=== PATIENT | male | born 1930 | race Hispanic/Latino ===

== ENCOUNTER 2018-02-22 14:39 | Observation (INO) | payer MEDICARE ==
[~2018-02-22] VITALS: Ht 154.9 cm; Wt 59.8 kg
[~2018-02-22 14:39] MED LIST: ALEN70TA47 PO; CILO50TA PO; IBUP-2077 PO; LEVO200T10 PO; LINA290C PO; METO25TA6 PO; MIRT15TA6 PO; OLAN5TAB27 PO; TYL3B PO; ZOLP10TA6 PO
[2018-02-22 15:35] LABS: BASOPHILS % (AUTO) 0.8 % (0.0-5.0); CREATININE 1.2 mg/dL (0.5-1.5); EOSINOPHILS % (AUTO) 2.5 % (0.0-8.0); HEMATOCRIT 35.9 % (42-54); LYMPHOCYTES % (AUTO) 39.2 % (21.0-51.0); MEAN CORPUSCULAR HGB CONC 33.4 g/dL (32.0-36.0); MEAN CORPUSCULAR VOLUME 95.9 fL (79-99); MONOCYTES % (AUTO) 7.6 % (3.0-13.0); NEUTROPHILS % (AUTO) 49.9 % (40.0-77.0); NUCLEATED RED BLOOD CELLS 0.1 % (0.0-0.19); PLATELET COUNT (AUTO) 160 K/uL (130-400); POTASSIUM 5.2 mmol/L (3.5-5.1); RED BLOOD CELL COUNT(AUTO) 3.75 MIL/uL (4.50-6.20); WHITE BLOOD COUNT (AUTO) 3.7 K/uL (4.8-10.8)
[2018-02-22 15:40] LABS: ALBUMIN 3.6 g/dL (3.5-5.0); BILIRUBIN,TOTAL 0.9 mg/dL (0.2-1.0); TOTAL PROTEIN, SERUM 6.5 g/dL (6.0-8.3)
[2018-02-22 15:56] LABS: APPEARANCE,URINE Clear (CLEAR); BILIRUBIN,URINE Negative (NEGATIVE); COLOR,URINE Yellow (YELLOW); GLUCOSE, URINE (UA) Negative (NEGATIVE); KETONES,URINE Negative (NEGATIVE); LEUKOCYTE ESTERASE ,URINE Negative (NEGATIVE); NITRATE,URINE Negative (NEGATIVE); OCCULT BLOOD,URINE Negative (NEGATIVE); PROTEIN,URINE POS 1+ (NEGATIVE)
[2018-02-22 16:04] LABS: BACTERIA,URINE Rare /HPF (None Seen); RBC,URINE 0-1 /HPF (0-1); SQUAMOUS EPITHELIAL CELL,UR Rare /HPF (0-2); WBC,URINE 0-1 /HPF (0-1)
[2018-02-22] MEDS ORDERED: ONDANSETRON HCL MDV 20ML 2 MG/ML VIAL ONE (16:19)
[2018-02-22] MEDS ORDERED: SODIUM CHLORIDE 0.9% 500ML 500 ML IV ONE (16:20)
[2018-02-22] MEDS ORDERED: MORPHINE SULFATE 4 MG/1ML SYG ONE (16:20)
[2018-02-22] MEDS ORDERED: LIDOCAINE HCL-MPF 1% 2ML VIAL IJ PRN (20:15)
[2018-02-22] MEDS ORDERED: MORPHINE SULFATE 2 MG/ML 1ML SYG IVP PRN (20:15)
[2018-02-22] MEDS ORDERED: POTASSIUM CHLORIDE 10% ELIXIR 20 MEQ/15 ML UDCUP PO PRN (20:15)
[2018-02-22] MEDS ORDERED: POTASSIUM CHLORIDE 20MEQ/100ML 100 ML IV PRN (20:15)
[2018-02-22] MEDS ORDERED: POTASSIUM CHLORIDE 20 MEQ ERTAB PO PRN (20:15)
[2018-02-22] MEDS ORDERED: ONDANSETRON HCL MDV 20ML 2 MG/ML VIAL IVP PRN (20:15)
[2018-02-22 21:18] VITALS: BP 130/54
[2018-02-22] MEDS: TRAMADOL HCL 50 MG TABLET PO PRN (21:55)
[2018-02-22 23:29] VITALS: BP 147/60
[2018-02-22] MEDS ORDERED: IPRATROPIUM/ALBUTEROL SULFATE 3 ML SOLUTION IH PRN (23:45)
[2018-02-22] MEDS ORDERED: HYDRALAZINE HCL 20 MG/ML VIAL IV PRN (23:45)
[2018-02-22] MEDS ORDERED: LACTULOSE 20 GM/30 ML UDCUP PO PRN (23:45)
[2018-02-23] MEDS ORDERED: MORPHINE SULFATE 4 MG/1ML SYG ONE ×2 (02:15→09:51)
[2018-02-23 03:26] VITALS: BP 141/60
[2018-02-23 04:15] LABS: HEMATOCRIT 34.5 % (42-54); MEAN CORPUSCULAR VOLUME 96.9 fL (79-99); PLATELET COUNT (AUTO) 155 K/uL (130-400); RED BLOOD CELL COUNT(AUTO) 3.56 MIL/uL (4.50-6.20); RED CELL DISTRIBUTION WIDTH 13.8 % (11.0-15.5); WHITE BLOOD COUNT (AUTO) 4.2 K/uL (4.8-10.8)
[2018-02-23 04:26] LABS: CREATININE 1.5 mg/dL (0.5-1.5); POTASSIUM 5.7 mmol/L (3.5-5.1)
[2018-02-23] MEDS: TRAMADOL HCL 50 MG TABLET PO PRN ×2 (05:10→22:22)
[2018-02-23 07:45] VITALS: BP 111/45
[2018-02-23] MEDS: FAMOTIDINE 20MG TAB 20 MG TAB PO SCH (08:52)
[2018-02-23 11:50] VITALS: BP 104/45
[2018-02-23 16:00] VITALS: BP 112/43
[2018-02-23 19:20] VITALS: BP 105/52
[2018-02-23 23:23] VITALS: BP 136/51
[2018-02-24] MEDS ORDERED: MORPHINE SULFATE 4 MG/1ML SYG ONE (03:00)
[2018-02-24 03:16] VITALS: BP 122/48
[2018-02-24 03:42] LABS: HEMATOCRIT 32.7 % (42-54); MEAN CORPUSCULAR HEMOGLOBIN 32.4 pg (27.0-33.0); MEAN CORPUSCULAR HGB CONC 34.1 g/dL (32.0-36.0); MEAN CORPUSCULAR VOLUME 95.1 fL (79-99); PLATELET COUNT (AUTO) 140 K/uL (130-400); RED BLOOD CELL COUNT(AUTO) 3.44 MIL/uL (4.50-6.20); RED CELL DISTRIBUTION WIDTH 13.7 % (11.0-15.5); WHITE BLOOD COUNT (AUTO) 4.2 K/uL (4.8-10.8)
[2018-02-24 03:51] LABS: CREATININE 1.1 mg/dL (0.5-1.5); POTASSIUM 5.7 mmol/L (3.5-5.1)
[2018-02-24 08:00] VITALS: BP 105/41
[2018-02-24] MEDS ORDERED: GABA-529 PO (08:53)
[2018-02-24] MEDS ORDERED: TRAM50TA4 PO (08:53)
[2018-02-24] MEDS ORDERED: DOCU100C33 PO (08:53)
[2018-02-24] MEDS ORDERED: ATOR40TA71 PO (08:53)
[2018-02-24] MEDS: FAMOTIDINE 20MG TAB 20 MG TAB PO SCH (08:54)
[2018-02-24] MEDS ORDERED: ZOLPIDEM TARTRATE 5 MG TAB PO PRN (10:45)
[2018-02-24] MEDS ORDERED: TRAMADOL HCL 50 MG TABLET PO SCH (10:45)
[2018-02-24] MEDS ORDERED: ATORVASTATIN CALCIUM 40 MG TABLET PO SCH (21:00)
[2018-02-24] MEDS ORDERED: DOCUSATE SODIUM 100 MG CAP PO SCH (21:00)
[2018-02-24] MEDS ORDERED: GABAPENTIN 100 MG CAPSULE PO SCH (21:00)
[2018-02-25] MEDS ORDERED: ALENDRONATE SODIUM 35 MG TAB PO SCH (06:30)
[2018-02-25] MEDS ORDERED: LEVOTHYROXINE 100 MCG TABLET PO SCH (06:30)
[2018-02-25] MEDS ORDERED: HOME MEDICATION 1 EACH PO SCH (07:30)
[2018-02-25] MEDS ORDERED: METOPROLOL TARTRATE 25 MG TAB PO SCH (09:00)
== END 2018-02-24 14:00 | disposition home or self-care (01) ==
LOC: EDH 14:39 → EDHIP 18:45 → 3BH 20:50
PROVIDERS: ADMIT Internal Medicine; ATTEND Internal Medicine
DX: M48.56XA Collapsed vertebra, not elsewhere classified, lumbar region, initial encounter for fracture (principal); M54.5 Low back pain; I10 Essential (primary) hypertension; E03.9 Hypothyroidism, unspecified; Z85.46 Personal history of malignant neoplasm of prostate; G89.29 Other chronic pain; Z90.49 Acquired absence of other specified parts of digestive tract
CPT/HCPCS: 36415 ×3; 72128; 72131; 80048 ×2; 80053; 81001; 85025; 85027 ×2; 93005; 94664; 96374; 96375; 97161; 99285; G0378 ×43; G8978; G8979; G8980; G8981; G8982; G8983; J2270 ×4; J7040

== ENCOUNTER 2018-03-09 14:53 | Emergency (ER) | payer MEDICARE ==
[~2018-03-09 14:53] MED LIST changes: +ATOR40TA71 PO; -CILO50TA PO; +DOCU100C33 PO; +GABA-529 PO; -IBUP-2077 PO; -MIRT15TA6 PO; -OLAN5TAB27 PO; +TRAM50TA4 PO; -TYL3B PO; -ZOLP10TA6 PO
[2018-03-09 15:24] LABS: BASOPHILS % (AUTO) 0.9 % (0.0-5.0); EOSINOPHILS % (AUTO) 2.2 % (0.0-8.0); HEMATOCRIT 37.1 % (42-54); LYMPHOCYTES % (AUTO) 41.6 % (21.0-51.0); MEAN CORPUSCULAR HEMOGLOBIN 31.7 pg (27.0-33.0); MEAN CORPUSCULAR HGB CONC 32.8 g/dL (32.0-36.0); MEAN CORPUSCULAR VOLUME 96.8 fL (79-99); MONOCYTES % (AUTO) 6.8 % (3.0-13.0); NEUTROPHILS % (AUTO) 48.5 % (40.0-77.0); PLATELET COUNT (AUTO) 167 K/uL (130-400); RED BLOOD CELL COUNT(AUTO) 3.83 MIL/uL (4.50-6.20); RED CELL DISTRIBUTION WIDTH 14.5 % (11.0-15.5); WHITE BLOOD COUNT (AUTO) 4.4 K/uL (4.8-10.8)
[2018-03-09 15:36] LABS: CREATININE 1.3 mg/dL (0.5-1.5); POTASSIUM 4.8 mmol/L (3.5-5.1)
[2018-03-09 15:42] LABS: ALBUMIN 3.8 g/dL (3.5-5.0); BILIRUBIN,TOTAL 0.8 mg/dL (0.2-1.0); TOTAL PROTEIN, SERUM 6.8 g/dL (6.0-8.3)
[2018-03-09] MEDS ORDERED: MAG HYDROX/AL HYDROX/SIMETH ES 30 ML SUSP UDCUP ONE (16:05)
[2018-03-09] MEDS ORDERED: LIDOCAINE HCL 2% VISCOUS 15 ML UDCUP ONE (16:05)
[2018-03-09] MEDS ORDERED: KETOROLAC TROMETHAMINE 15MG/ML ONE (16:05)
[2018-03-09 16:17] LABS: AMYLASE 81 U/L (25-115); LIPASE 84 U/L (114-286)
[2018-03-09 16:51] LABS: APPEARANCE,URINE Clear (CLEAR); BILIRUBIN,URINE Negative (NEGATIVE); COLOR,URINE Yellow (YELLOW); GLUCOSE, URINE (UA) Negative (NEGATIVE); KETONES,URINE Negative (NEGATIVE); LEUKOCYTE ESTERASE ,URINE Negative (NEGATIVE); NITRATE,URINE Negative (NEGATIVE); OCCULT BLOOD,URINE Negative (NEGATIVE); PROTEIN,URINE POS 1+ (NEGATIVE); UROBILINOGEN,URINE 0.2 mg/dL (0.2-1.0)
[2018-03-09 17:19] LABS: BACTERIA,URINE Few /HPF (None Seen); RBC,URINE 0-1 /HPF (0-1); WBC,URINE 0-1 /HPF (0-1)
[2018-03-09 17:20] LABS: SQUAMOUS EPITHELIAL CELL,UR Rare /HPF (0-2)
[2018-03-09] MEDS ORDERED: LIDOCAINE 5% TOPICAL PATCH TP ONE (17:59)
== END 2018-03-09 18:17 | disposition home or self-care (01) ==
LOC: EDH 14:53
DX: J44.1 Chronic obstructive pulmonary disease with (acute) exacerbation (principal); M48.54XA Collapsed vertebra, not elsewhere classified, thoracic region, initial encounter for fracture; R10.13 Epigastric pain; M54.5 Low back pain; I10 Essential (primary) hypertension; E03.9 Hypothyroidism, unspecified; Z85.46 Personal history of malignant neoplasm of prostate; Z98.890 Other specified postprocedural states; Z87.891 Personal history of nicotine dependence
CPT/HCPCS: 36415; 71046; 80053; 81001; 82150; 83690; 83880; 85025; 93005; 96374; 99291; J1885

== ENCOUNTER 2018-07-08 14:10 | Inpatient (IN) | payer MEDICARE ==
[~2018-07-08] VITALS: Ht 165.1 cm; Wt 54.1 kg
[~2018-07-08 14:10] MED LIST changes: +DOC Q LACE PO; -DOCU100C33 PO; +ZOLP10TA6 PO
[2018-07-08 14:52] LABS: BASOPHILS % (AUTO) 0.3 % (0.0-5.0); EOSINOPHILS % (AUTO) 0.5 % (0.0-8.0); HEMATOCRIT 33.9 % (42-54); LYMPHOCYTES % (AUTO) 16.4 % (21.0-51.0); MEAN CORPUSCULAR HEMOGLOBIN 33.4 pg (27.0-33.0); MEAN CORPUSCULAR HGB CONC 32.8 g/dL (32.0-36.0); MEAN CORPUSCULAR VOLUME 101.8 fL (79-99); MONOCYTES % (AUTO) 5.4 % (3.0-13.0); NEUTROPHILS % (AUTO) 77.4 % (40.0-77.0); NUCLEATED RED BLOOD CELLS 0.1 % (0.0-0.19); PLATELET COUNT (AUTO) 160 K/uL (130-400); RED BLOOD CELL COUNT(AUTO) 3.33 MIL/uL (4.50-6.20); RED CELL DISTRIBUTION WIDTH 18.1 % (11.0-15.5); WHITE BLOOD COUNT (AUTO) 4.7 K/uL (4.8-10.8)
[2018-07-08 15:07] LABS: CREATININE 1.1 mg/dL (0.5-1.5); POTASSIUM 5.5 mmol/L (3.5-5.1)
[2018-07-08 15:11] LABS: ALBUMIN 3.2 g/dL (3.5-5.0); BILIRUBIN,TOTAL 0.7 mg/dL (0.2-1.0); TOTAL PROTEIN, SERUM 6.4 g/dL (6.0-8.3)
[2018-07-08] MEDS ORDERED: IOHEXOL-350 75 ML VIAL IV ONE (15:33)
[2018-07-08 16:06] LABS: APPEARANCE,URINE Clear (CLEAR); BILIRUBIN,URINE Negative (NEGATIVE); COLOR,URINE Yellow (YELLOW); GLUCOSE, URINE (UA) Negative (NEGATIVE); KETONES,URINE Negative (NEGATIVE); LEUKOCYTE ESTERASE ,URINE Negative (NEGATIVE); NITRATE,URINE Negative (NEGATIVE); OCCULT BLOOD,URINE Negative (NEGATIVE); PH,URINE 5.5 (5.0-8.0); PROTEIN,URINE POS 1+ (NEGATIVE); UROBILINOGEN,URINE 0.2 mg/dL (0.2-1.0)
[2018-07-08 16:29] LABS: BACTERIA,URINE None Seen /HPF (None Seen); RBC,URINE None Seen /HPF (0-1); SQUAMOUS EPITHELIAL CELL,UR 0-2 /HPF (0-2); WBC,URINE None Seen /HPF (0-1)
[2018-07-08] MEDS ORDERED: DEXTROSE 50%-WATER 50 ML DISP.SYRIN IV ONE (16:49)
[2018-07-08] MEDS ORDERED: INSULIN HUMULIN R 100 UNIT/ML 3ML ONE (16:50)
[2018-07-08] MEDS ORDERED: SODIUM CHLORIDE 0.9% 1000ML 1,000 ML IV ONE (17:58)
[2018-07-08] MEDS ORDERED: LIDOCAINE HCL 2% VISCOUS 15 ML UDCUP ONE (18:34)
[2018-07-08] MEDS ORDERED: ENOXAPARIN SODIUM 30 MG/0.3 ML SQ ONE (18:50)
[2018-07-08] MEDS ORDERED: ONDANSETRON HCL MDV 20ML 2 MG/ML VIAL IVP PRN (19:30)
[2018-07-08 21:07] VITALS: BP 189/95
[2018-07-08] MEDS ORDERED: HYDRALAZINE HCL 20 MG/ML VIAL IV PRN (21:15)
[2018-07-08] MEDS ORDERED: MAGNESIUM 2GM PREMIX 50ML 50 ML IV PRN (21:15)
[2018-07-08 22:00] VITALS: BP 160/73
[2018-07-08] MEDS: MORPHINE SULFATE 5 MG/ML VIAL IV PRN (22:49)
[2018-07-08] MEDS: SODIUM CHLORIDE 0.9% 1000ML 1,000 ML IV SCH (23:06)
[2018-07-08 23:45] VITALS: BP 191/84
[2018-07-09 04:00] VITALS: BP 136/65
[2018-07-09 04:04] LABS: HEMATOCRIT 33.6 % (42-54); MEAN CORPUSCULAR HEMOGLOBIN 32.8 pg (27.0-33.0); MEAN CORPUSCULAR HGB CONC 32.6 g/dL (32.0-36.0); MEAN CORPUSCULAR VOLUME 100.7 fL (79-99); NUCLEATED RED BLOOD CELLS 0.1 % (0.0-0.19); PLATELET COUNT (AUTO) 133 K/uL (130-400); RED BLOOD CELL COUNT(AUTO) 3.33 MIL/uL (4.50-6.20); WHITE BLOOD COUNT (AUTO) 4.3 K/uL (4.8-10.8)
[2018-07-09 04:17] LABS: BAND NEUTROPHILS % (MANUAL) 2 % (0-2); EOSINOPHILS % (MANUAL) 4 % (1-6); LYMPHOCYTES % (MANUAL) 14 % (22-44); MAN.DIFF COMMENT-IMPRESSION MANUAL DIFFERENTIAL; MONOCYTES % (MANUAL) 6 % (2-9); PLATELET MORPHOLOGY COMMENT SLIGHTLY DECREASED; SEGMENTED NEUTROPHILS % 74 % (40-70)
[2018-07-09 04:28] LABS: ALBUMIN 2.7 g/dL (3.5-5.0); CREATININE 0.8 mg/dL (0.5-1.5); MAGNESIUM 1.4 mg/dL (1.80-2.40); POTASSIUM 5.4 mmol/L (3.5-5.1); TOTAL PROTEIN, SERUM 5.4 g/dL (6.0-8.3)
[2018-07-09] MEDS: SODIUM CHLORIDE 0.9% 1000ML 1,000 ML IV SCH ×3 (05:27→18:57)
[2018-07-09] MEDS: MORPHINE SULFATE 5 MG/ML VIAL IV PRN (07:32)
[2018-07-09 07:36] VITALS: BP 176/74
[2018-07-09] MEDS: FAMOTIDINE/PF 20 MG/2 ML VIAL IV SCH (10:10)
[2018-07-09] MEDS: ENOXAPARIN SODIUM 30 MG/0.3 ML SQ SCH (10:10)
[2018-07-09 11:15] VITALS: BP 159/98
[2018-07-09] MEDS ORDERED: TAMS0.4C32 PO (14:35)
[2018-07-09] MEDS ORDERED: LEVO200 PO (14:35)
[2018-07-09] MEDS ORDERED: GABA-529 PO (14:35)
[2018-07-09 15:58] VITALS: BP 159/66
[2018-07-09] MEDS ORDERED: METOPROLOL TARTRATE 25 MG TAB ONE (20:29)
[2018-07-09] MEDS ORDERED: METOPROLOL TARTRATE 25 MG TAB PO SCH (20:30)
[2018-07-09] MEDS ORDERED: TRAMADOL HCL 50 MG TABLET PO SCH (20:30)
[2018-07-09] MEDS ORDERED: HYDRALAZINE HCL 25 MG TABLET PO PRN (20:30)
[2018-07-09 20:58] VITALS: BP 158/81
[2018-07-09] MEDS ORDERED: ATORVASTATIN CALCIUM 40 MG TABLET PO SCH (21:00)
[2018-07-09 23:41] VITALS: BP 168/71
[2018-07-10 04:00] VITALS: BP 178/89
[2018-07-10 05:03] VITALS: BP 158/72
[2018-07-10 07:00] VITALS: BP 196/96
[2018-07-10] MEDS ORDERED: LEVOTHYROXINE 100 MCG TABLET PO SCH (07:30)
[2018-07-10] MEDS ORDERED: LINACLOTIDE 290 MCG PO SCH (07:30)
[2018-07-10] MEDS: FAMOTIDINE/PF 20 MG/2 ML VIAL IV SCH (07:37)
[2018-07-10] MEDS: ENOXAPARIN SODIUM 30 MG/0.3 ML SQ SCH (07:38)
[2018-07-10] MEDS ORDERED: METOPROLOL TARTRATE 25 MG TAB PO SCH (09:00)
[2018-07-10] MEDS ORDERED: GABAPENTIN 100 MG CAPSULE PO SCH (09:00)
[2018-07-10 11:00] VITALS: BP 184/97
[2018-07-10] MEDS: MORPHINE SULFATE 5 MG/ML VIAL IV PRN (11:51)
[2018-07-10 16:00] VITALS: BP 134/76
== END 2018-07-10 17:25 | disposition home or self-care (01) | DRG 390 ==
LOC: EDH 14:10 → EDHIP 18:15 → 2DH 19:43
PROVIDERS: ADMIT Hospitalist; ATTEND Hospitalist
DX: K56.609 Unspecified intestinal obstruction, unspecified as to partial versus complete obstruction (principal); I10 Essential (primary) hypertension; E87.5 Hyperkalemia; E83.42 Hypomagnesemia; E78.5 Hyperlipidemia, unspecified; G89.29 Other chronic pain; I49.3 Ventricular premature depolarization; E03.9 Hypothyroidism, unspecified; Z87.891 Personal history of nicotine dependence; Z98.42 Cataract extraction status, left eye; Z98.41 Cataract extraction status, right eye; Z85.46 Personal history of malignant neoplasm of prostate; Z82.5 Family history of asthma and other chronic lower respiratory diseases; Z82.49 Family history of ischemic heart disease and other diseases of the circulatory system
CPT/HCPCS: 36415; 74018; 74177; 80053; 81001; 83605; 83735; 83880; 84484; 85025; 87040; 93005; J1650; J1815; J2270; J3475; J3490; J7030; J7070; Q9967

== ENCOUNTER 2018-07-16 18:11 | Inpatient (IN) | payer MEDICARE ==
[~2018-07-16] VITALS: Ht 160 cm; Wt 58.1 kg
[~2018-07-16 18:11] MED LIST changes: +LEVO200 PO; -LEVO200T10 PO; +TAMS0.4C32 PO
[2018-07-16 18:33] LABS: BASOPHILS % (AUTO) 0.4 % (0.0-5.0); EOSINOPHILS % (AUTO) 1.2 % (0.0-8.0); HEMATOCRIT 33.2 % (42-54); MEAN CORPUSCULAR HEMOGLOBIN 32.7 pg (27.0-33.0); MEAN CORPUSCULAR HGB CONC 32.2 g/dL (32.0-36.0); MEAN CORPUSCULAR VOLUME 101.3 fL (79-99); MONOCYTES % (AUTO) 4.8 % (3.0-13.0); NEUTROPHILS % (AUTO) 78.6 % (40.0-77.0); PLATELET COUNT (AUTO) 160 K/uL (130-400); RED BLOOD CELL COUNT(AUTO) 3.28 MIL/uL (4.50-6.20); RED CELL DISTRIBUTION WIDTH 17.9 % (11.0-15.5); WHITE BLOOD COUNT (AUTO) 5.8 K/uL (4.8-10.8)
[2018-07-16 18:39] LABS: POTASSIUM 5.5 mmol/L (3.5-5.1)
[2018-07-16 18:46] LABS: BILIRUBIN,TOTAL 0.8 mg/dL (0.2-1.0); TOTAL PROTEIN, SERUM 5.6 g/dL (6.0-8.3)
[2018-07-16] MEDS ORDERED: ONDANSETRON HCL 4 MG/2 ML VIAL ONE (19:28)
[2018-07-16] MEDS ORDERED: MORPHINE SULFATE 4 MG/1ML SYG ONE (19:28)
[2018-07-16] MEDS ORDERED: SODIUM CHLORIDE 0.9% 1000ML 1,000 ML IV ONE (19:28)
[2018-07-16] MEDS ORDERED: SODIUM POLYSTYRENE SULFONATE 15 GM/60 ML ML ONE (21:58)
[2018-07-17] VITALS (8 sets, daily range): BP systolic 100–143; BP diastolic 46–84
[2018-07-17] MEDS ORDERED: CLONIDINE HCL 0.1 MG TABLET ONE (00:03)
[2018-07-17] MEDS ORDERED: CLONIDINE HCL 0.1 MG TABLET PO PRN (00:15)
[2018-07-17] MEDS ORDERED: NITROGLYCERIN 0.4 MG SL TAB SL PRN (00:15)
[2018-07-17] MEDS: SODIUM POLYSTYRENE SULFONATE 15 GM/60 ML ML PO SCH (01:15)
[2018-07-17] MEDS ORDERED: SODIUM POLYSTYRENE SULFONATE 15 GM/60 ML ML ONE (04:07)
[2018-07-17] MEDS ORDERED: TRAMADOL HCL 50 MG TABLET ONE (04:07)
[2018-07-17 04:39] LABS: BASOPHILS % (AUTO) 0.5 % (0.0-5.0); HEMATOCRIT 33.9 % (42-54); LYMPHOCYTES % (AUTO) 17.8 % (21.0-51.0); MEAN CORPUSCULAR HEMOGLOBIN 33.7 pg (27.0-33.0); MEAN CORPUSCULAR HGB CONC 32.9 g/dL (32.0-36.0); MEAN CORPUSCULAR VOLUME 102.3 fL (79-99); MONOCYTES % (AUTO) 4.5 % (3.0-13.0); NEUTROPHILS % (AUTO) 76.2 % (40.0-77.0); PLATELET COUNT (AUTO) 179 K/uL (130-400); RED BLOOD CELL COUNT(AUTO) 3.32 MIL/uL (4.50-6.20); RED CELL DISTRIBUTION WIDTH 18.2 % (11.0-15.5); WHITE BLOOD COUNT (AUTO) 5.5 K/uL (4.8-10.8)
[2018-07-17 04:47] LABS: POTASSIUM 5.6 mmol/L (3.5-5.1)
[2018-07-17 04:53] LABS: ALBUMIN 3.1 g/dL (3.5-5.0); BILIRUBIN,TOTAL 0.9 mg/dL (0.2-1.0); TOTAL PROTEIN, SERUM 5.8 g/dL (6.0-8.3)
[2018-07-17] MEDS: LINACLOTIDE 290 MCG PO SCH (07:30)
[2018-07-17] MEDS: LEVOTHYROXINE 100 MCG TABLET PO SCH (07:30)
[2018-07-17] MEDS: GABAPENTIN 100 MG CAPSULE PO SCH (09:41)
[2018-07-17] MEDS: METOPROLOL TARTRATE 25 MG TAB PO SCH (09:41)
[2018-07-17] MEDS: TAMSULOSIN HCL 0.4 MG CAP.ER.24H PO SCH (09:41)
[2018-07-17] MEDS: TRAMADOL HCL 50 MG TABLET PO PRN (12:04)
[2018-07-17] MEDS ORDERED: SODIUM POLYSTYRENE SULFONATE 15 GM/60 ML ML PO SCH (16:00)
[2018-07-17] MEDS: HYDROCODONE/ACETAMINOPHEN 5/325 MG TAB PO PRN ×2 (16:36→22:51)
[2018-07-17] MEDS: DOCUSATE SODIUM 100 MG CAP PO SCH (20:27)
[2018-07-17] MEDS: ATORVASTATIN CALCIUM 40 MG TABLET PO SCH (20:28)
[2018-07-17] MEDS: ZOLPIDEM TARTRATE 5 MG TAB PO SCH (20:28)
[2018-07-18] MEDS: SODIUM POLYSTYRENE SULFONATE 15 GM/60 ML ML PO SCH (00:31)
[2018-07-18] MEDS: TRAMADOL HCL 50 MG TABLET PO PRN (02:00)
[2018-07-18 03:09] VITALS: BP 141/67
[2018-07-18] MEDS: HYDROCODONE/ACETAMINOPHEN 5/325 MG TAB PO PRN ×4 (04:25→21:53)
[2018-07-18] MEDS: LEVOTHYROXINE 100 MCG TABLET PO SCH (05:46)
[2018-07-18] MEDS: LINACLOTIDE 290 MCG PO SCH (07:30)
[2018-07-18 08:00] VITALS: BP 171/74
[2018-07-18] MEDS ORDERED: IPRATROPIUM/ALBUTEROL SULFATE 3 ML SOLUTION IH PRN (09:15)
[2018-07-18] MEDS: METOPROLOL TARTRATE 25 MG TAB PO SCH (09:25)
[2018-07-18] MEDS: GABAPENTIN 100 MG CAPSULE PO SCH (09:25)
[2018-07-18] MEDS: TAMSULOSIN HCL 0.4 MG CAP.ER.24H PO SCH (09:25)
[2018-07-18 11:00] VITALS: BP 151/69
[2018-07-18 16:00] VITALS: BP 138/63
[2018-07-18] MEDS: DOCUSATE SODIUM 100 MG CAP PO SCH (20:13)
[2018-07-18] MEDS: ZOLPIDEM TARTRATE 5 MG TAB PO SCH (20:13)
[2018-07-18] MEDS: ATORVASTATIN CALCIUM 40 MG TABLET PO SCH (20:14)
[2018-07-18 20:42] VITALS: BP 158/80
[2018-07-19 00:28] VITALS: BP 143/67
[2018-07-19] MEDS: SODIUM POLYSTYRENE SULFONATE 15 GM/60 ML ML PO SCH (01:15)
[2018-07-19] MEDS: HYDROCODONE/ACETAMINOPHEN 5/325 MG TAB PO PRN ×3 (02:58→13:32)
[2018-07-19 04:00] VITALS: BP 150/68
[2018-07-19] MEDS: LEVOTHYROXINE 100 MCG TABLET PO SCH (05:59)
[2018-07-19 07:00] VITALS: BP 180/93
[2018-07-19] MEDS: LINACLOTIDE 290 MCG PO SCH (07:30)
[2018-07-19] MEDS: GABAPENTIN 100 MG CAPSULE PO SCH (08:06)
[2018-07-19] MEDS: TAMSULOSIN HCL 0.4 MG CAP.ER.24H PO SCH (08:06)
[2018-07-19] MEDS: METOPROLOL TARTRATE 25 MG TAB PO SCH (08:06)
[2018-07-19] MEDS ORDERED: ASPIRIN 81MG TAB.CHEW PO SCH (09:00)
[2018-07-19] MEDS ORDERED: AMLODIPINE BESYLATE 5 MG TAB PO SCH (09:00)
[2018-07-19 09:43] LABS: CREATININE 1.1 mg/dL (0.5-1.5); POTASSIUM 4.5 mmol/L (3.5-5.1)
[2018-07-19 11:00] VITALS: BP 171/84
[2018-07-19] MEDS ORDERED: TRAM50TA4 PO (11:58)
[2018-07-19] MEDS ORDERED: AMLO5TAB4 PO (11:58)
[2018-07-19] MEDS ORDERED: ASPI-1005 PO (11:58)
== END 2018-07-19 14:10 | disposition home or self-care (01) | DRG 313 ==
LOC: EDH 18:11 → EDHIP 23:40 → 4AH 07-17 08:05
PROVIDERS: ADMIT Hospitalist; ATTEND Hospitalist
PROC: 3E0234Z Introduction of Serum, Toxoid and Vaccine into Muscle, Percutaneous Approach (ICD-10-PCS; principal; 2018-07-19)
DX: R07.89 Other chest pain (principal); R42 Dizziness and giddiness; G89.29 Other chronic pain; I10 Essential (primary) hypertension; I25.10 Atherosclerotic heart disease of native coronary artery without angina pectoris; M54.5 Low back pain; E87.5 Hyperkalemia; F11.21 Opioid dependence, in remission; I73.9 Peripheral vascular disease, unspecified; Z96.653 Presence of artificial knee joint, bilateral; F17.200 Nicotine dependence, unspecified, uncomplicated; R00.1 Bradycardia, unspecified; E03.9 Hypothyroidism, unspecified; E78.5 Hyperlipidemia, unspecified; Z23 Encounter for immunization; Z85.46 Personal history of malignant neoplasm of prostate; Z82.5 Family history of asthma and other chronic lower respiratory diseases; Z82.49 Family history of ischemic heart disease and other diseases of the circulatory system; Z80.9 Family history of malignant neoplasm, unspecified; Z80.8 Family history of malignant neoplasm of other organs or systems
CPT/HCPCS: 36415; 71045; 74176; 80048; 80053; 83690; 84132; 84439; 84443; 84484; 85025; 93005; 94664; 97039; G0008; J2270; J2405; J7030; Q2038

== ENCOUNTER 2018-07-30 10:10 | Emergency (ER) | payer MEDICARE ==
[~2018-07-30 10:10] MED LIST changes: +AMLO5TAB4 PO; +ASPI-1005 PO; -ZOLP10TA6 PO
[2018-07-30] MEDS ORDERED: SODIUM CHLORIDE 0.9% 1000ML 1,000 ML IV ONE (10:52)
[2018-07-30] MEDS ORDERED: LACTULOSE 20 GM/30 ML UDCUP ONE (12:43)
== END 2018-07-30 14:08 | disposition home or self-care (01) ==
LOC: EDH 10:10
DX: K59.00 Constipation, unspecified (principal); R10.84 Generalized abdominal pain; G89.29 Other chronic pain; M54.9 Dorsalgia, unspecified; E03.9 Hypothyroidism, unspecified; F11.20 Opioid dependence, uncomplicated; Z85.46 Personal history of malignant neoplasm of prostate; Z72.0 Tobacco use
CPT/HCPCS: 74018; 74176; 99285; J7030

== ENCOUNTER 2018-07-31 15:48 | Emergency (ER) | payer MEDICARE ==
[2018-07-31] MEDS ORDERED: HYDROCODONE/ACETAMINOPHEN 5/325 MG TAB ONE (16:29)
[2018-07-31 16:44] LABS: BASOPHILS % (AUTO) 1.1 % (0.0-5.0); EOSINOPHILS % (AUTO) 0.9 % (0.0-8.0); MEAN CORPUSCULAR HEMOGLOBIN 34.1 pg (27.0-33.0); MEAN CORPUSCULAR HGB CONC 33.3 g/dL (32.0-36.0); MEAN CORPUSCULAR VOLUME 102.4 fL (79-99); MONOCYTES % (AUTO) 4.4 % (3.0-13.0); NEUTROPHILS % (AUTO) 71.6 % (40.0-77.0); NUCLEATED RED BLOOD CELLS 0.1 % (0.0-0.19); PLATELET COUNT (AUTO) 176 K/uL (130-400); RED BLOOD CELL COUNT(AUTO) 3.51 MIL/uL (4.50-6.20); RED CELL DISTRIBUTION WIDTH 17.6 % (11.0-15.5); WHITE BLOOD COUNT (AUTO) 3.9 K/uL (4.8-10.8)
[2018-07-31 16:56] LABS: CREATININE 1.3 mg/dL (0.5-1.5)
[2018-07-31 17:07] LABS: ALBUMIN 3.1 g/dL (3.5-5.0); BILIRUBIN,TOTAL 0.9 mg/dL (0.2-1.0); TOTAL PROTEIN, SERUM 5.9 g/dL (6.0-8.3)
[2018-07-31] MEDS ORDERED: ONDANSETRON ODT 4 MG TAB ONE (17:16)
== END 2018-07-31 20:04 | disposition home or self-care (01) ==
LOC: EDH 15:48
DX: G89.29 Other chronic pain (principal); M54.5 Low back pain; I10 Essential (primary) hypertension; E03.9 Hypothyroidism, unspecified; F11.20 Opioid dependence, uncomplicated; Z85.46 Personal history of malignant neoplasm of prostate; Z87.891 Personal history of nicotine dependence
CPT/HCPCS: 36415; 72131; 80053; 85025

== ENCOUNTER 2018-08-01 11:59 | Emergency (ER) | payer MEDICARE ==
[2018-08-01] MEDS ORDERED: MORPHINE SULFATE 4 MG/1ML SYG ONE (13:46)
[2018-08-01] MEDS ORDERED: ONDANSETRON HCL 4 MG/2 ML VIAL ONE (13:47)
[2018-08-01] MEDS ORDERED: SODIUM CHLORIDE 0.9% 500ML 500 ML IV ONE (14:10)
[2018-08-01] MEDS ORDERED: PROPOFOL 10 MG/ML 20ML VIAL IV ONE (14:27)
== END 2018-08-01 17:05 | disposition home or self-care (01) ==
LOC: EDH 11:59
DX: S43.085A Other dislocation of left shoulder joint, initial encounter (principal); I10 Essential (primary) hypertension; E03.9 Hypothyroidism, unspecified; F11.20 Opioid dependence, uncomplicated; Z85.46 Personal history of malignant neoplasm of prostate; W18.39XA Other fall on same level, initial encounter; Y93.89 Activity, other specified; Y92.89 Other specified places as the place of occurrence of the external cause; Y99.8 Other external cause status
CPT/HCPCS: 23650; 73020; 73030; 96374; 96375; 99285; J2270; J2405; J2704; J7040

== ENCOUNTER 2018-08-07 12:36 | Emergency (ER) | payer OTHER, MEDICARE ==
[2018-08-07] MEDS ORDERED: MORPHINE SULFATE 2 MG/ML 1ML SYG ONE (14:45)
[2018-08-07] MEDS ORDERED: ONDANSETRON HCL 4 MG/2 ML VIAL ONE (14:45)
[2018-08-07] MEDS ORDERED: ETOMIDATE 2 MG/ML 10 ML VIAL ONE (15:32)
== END 2018-08-07 19:20 | disposition home or self-care (01) ==
LOC: EDH 12:36
DX: S43.005A Unspecified dislocation of left shoulder joint, initial encounter (principal); I10 Essential (primary) hypertension; E03.9 Hypothyroidism, unspecified; G89.29 Other chronic pain; M54.9 Dorsalgia, unspecified; Z85.46 Personal history of malignant neoplasm of prostate; Z90.49 Acquired absence of other specified parts of digestive tract; F11.20 Opioid dependence, uncomplicated; Z72.0 Tobacco use; W18.39XA Other fall on same level, initial encounter; Y93.01 Activity, walking, marching and hiking; Y92.89 Other specified places as the place of occurrence of the external cause; Y99.8 Other external cause status
CPT/HCPCS: 23650; 73020; 73030; 96374; 96375; 99152; 99285; J2405; J3490

== ENCOUNTER 2018-08-23 13:02 | Emergency (ER) | payer OTHER, MEDICARE ==
[2018-08-23 13:24] LABS: BASOPHILS % (AUTO) 0.9 % (0.0-5.0); EOSINOPHILS % (AUTO) 1.3 % (0.0-8.0); HEMATOCRIT 36.4 % (42-54); LYMPHOCYTES % (AUTO) 23.6 % (21.0-51.0); MEAN CORPUSCULAR HEMOGLOBIN 33.3 pg (27.0-33.0); MEAN CORPUSCULAR HGB CONC 31.9 g/dL (32.0-36.0); MEAN CORPUSCULAR VOLUME 104.4 fL (79-99); NEUTROPHILS % (AUTO) 66.2 % (40.0-77.0); NUCLEATED RED BLOOD CELLS 0.1 % (0.0-0.19); PLATELET COUNT (AUTO) 175 K/uL (130-400); RED BLOOD CELL COUNT(AUTO) 3.48 MIL/uL (4.50-6.20); WHITE BLOOD COUNT (AUTO) 4.3 K/uL (4.8-10.8)
[2018-08-23 13:37] LABS: POTASSIUM 5.4 mmol/L (3.5-5.1)
[2018-08-23 13:41] LABS: ALBUMIN 3.3 g/dL (3.5-5.0); BILIRUBIN,TOTAL 0.6 mg/dL (0.2-1.0); TOTAL PROTEIN, SERUM 6.3 g/dL (6.0-8.3)
[2018-08-23] MEDS ORDERED: LACTULOSE 20 GM/30 ML UDCUP ONE (13:56)
[2018-08-23] MEDS ORDERED: IPRATROPIUM/ALBUTEROL SULFATE 3 ML SOLUTION IH ONE (14:00)
[2018-08-23 15:12] LABS: APPEARANCE,URINE Clear (CLEAR); BILIRUBIN,URINE Negative (NEGATIVE); COLOR,URINE Yellow (YELLOW); GLUCOSE, URINE (UA) Negative (NEGATIVE); KETONES,URINE Negative (NEGATIVE); LEUKOCYTE ESTERASE ,URINE Negative (NEGATIVE); NITRATE,URINE Negative (NEGATIVE); OCCULT BLOOD,URINE Negative (NEGATIVE); PROTEIN,URINE Trace (NEGATIVE); UROBILINOGEN,URINE 0.2 mg/dL (0.2-1.0)
[2018-08-23 15:44] LABS: BACTERIA,URINE Rare /HPF (None Seen); RBC,URINE 0-1 /HPF (0-1); SQUAMOUS EPITHELIAL CELL,UR Rare /HPF (0-2); WBC,URINE 0-1 /HPF (0-1)
== END 2018-08-23 16:03 | disposition home or self-care (01) ==
LOC: EDH 13:02
DX: J44.1 Chronic obstructive pulmonary disease with (acute) exacerbation (principal); K59.00 Constipation, unspecified; G89.4 Chronic pain syndrome; F11.20 Opioid dependence, uncomplicated; I10 Essential (primary) hypertension; E03.9 Hypothyroidism, unspecified; Z90.49 Acquired absence of other specified parts of digestive tract; Z85.46 Personal history of malignant neoplasm of prostate; Z72.0 Tobacco use
CPT/HCPCS: 36415; 80053; 81001; 81003; 83690; 85025; 93005; 94640

== ENCOUNTER 2018-09-09 10:43 | Emergency (ER) | payer OTHER, MEDICARE ==
[2018-09-09 12:34] LABS: BASOPHILS % (AUTO) 0.8 % (0.0-5.0); EOSINOPHILS % (AUTO) 2.3 % (0.0-8.0); HEMATOCRIT 37.3 % (42-54); LYMPHOCYTES % (AUTO) 27.3 % (21.0-51.0); MEAN CORPUSCULAR HEMOGLOBIN 34.3 pg (27.0-33.0); MEAN CORPUSCULAR HGB CONC 32.7 g/dL (32.0-36.0); MEAN CORPUSCULAR VOLUME 104.8 fL (79-99); MONOCYTES % (AUTO) 7.7 % (3.0-13.0); NEUTROPHILS % (AUTO) 61.9 % (40.0-77.0); NUCLEATED RED BLOOD CELLS 0.1 % (0.0-0.19); PLATELET COUNT (AUTO) 143 K/uL (130-400); RED BLOOD CELL COUNT(AUTO) 3.56 MIL/uL (4.50-6.20); RED CELL DISTRIBUTION WIDTH 16.7 % (11.0-15.5); WHITE BLOOD COUNT (AUTO) 3.9 K/uL (4.8-10.8)
[2018-09-09 12:51] LABS: CREATININE 0.9 mg/dL (0.5-1.5); POTASSIUM 4.5 mmol/L (3.5-5.1)
[2018-09-09 12:55] LABS: ALBUMIN 3.4 g/dL (3.5-5.0); BILIRUBIN,TOTAL 0.8 mg/dL (0.2-1.0); TOTAL PROTEIN, SERUM 6.3 g/dL (6.0-8.3)
[2018-09-09 12:58] LABS: INR 0.95 (0.85-1.15); PARTIAL THROMBOPLASTIN TIME 30.6 SEC (26.3-35.5)
[2018-09-09] MEDS ORDERED: KETOROLAC TROMETHAMINE 15MG/ML ONE (13:54)
[2018-09-09 14:12] LABS: APPEARANCE,URINE Clear (CLEAR); BILIRUBIN,URINE Negative (NEGATIVE); COLOR,URINE Yellow (YELLOW); GLUCOSE, URINE (UA) Negative (NEGATIVE); KETONES,URINE Negative (NEGATIVE); LEUKOCYTE ESTERASE ,URINE Negative (NEGATIVE); NITRATE,URINE Negative (NEGATIVE); OCCULT BLOOD,URINE Negative (NEGATIVE); PROTEIN,URINE POS 1+ (NEGATIVE); UROBILINOGEN,URINE 0.2 mg/dL (0.2-1.0)
[2018-09-09 15:09] LABS: BACTERIA,URINE Rare /HPF (None Seen); RBC,URINE 0-1 /HPF (0-1); SQUAMOUS EPITHELIAL CELL,UR Rare /HPF (0-2); WBC,URINE 0-1 /HPF (0-1)
== END 2018-09-09 16:00 | disposition home or self-care (01) ==
LOC: EDH 10:43
DX: G89.29 Other chronic pain (principal); M54.41 Lumbago with sciatica, right side; I10 Essential (primary) hypertension; E03.9 Hypothyroidism, unspecified; F11.20 Opioid dependence, uncomplicated; Z85.46 Personal history of malignant neoplasm of prostate; Z72.0 Tobacco use; Z90.49 Acquired absence of other specified parts of digestive tract; Z98.890 Other specified postprocedural states
CPT/HCPCS: 36415; 70450; 71046; 72131; 80053; 81001; 82550; 84484; 85025; 85610; 85730; 93005; 96374; 99285; J1885

== ENCOUNTER 2018-10-13 10:35 | Emergency (ER) | payer OTHER, MEDICARE ==
[2018-10-13 11:12] LABS: BASOPHILS % (AUTO) 0.9 % (0.0-5.0); EOSINOPHILS % (AUTO) 2.7 % (0.0-8.0); HEMATOCRIT 38.6 % (42-54); LYMPHOCYTES % (AUTO) 19.7 % (21.0-51.0); MEAN CORPUSCULAR HEMOGLOBIN 34.4 pg (27.0-33.0); MEAN CORPUSCULAR HGB CONC 32.6 g/dL (32.0-36.0); MEAN CORPUSCULAR VOLUME 105.4 fL (79-99); MONOCYTES % (AUTO) 9.4 % (3.0-13.0); NEUTROPHILS % (AUTO) 67.3 % (40.0-77.0); NUCLEATED RED BLOOD CELLS 0.1 % (0.0-0.19); PLATELET COUNT (AUTO) 118 K/uL (130-400); RED BLOOD CELL COUNT(AUTO) 3.67 MIL/uL (4.50-6.20); RED CELL DISTRIBUTION WIDTH 15.1 % (11.0-15.5); WHITE BLOOD COUNT (AUTO) 3.1 K/uL (4.8-10.8)
[2018-10-13 11:27] LABS: CREATININE 1.2 mg/dL (0.5-1.5); POTASSIUM 5.1 mmol/L (3.5-5.1)
[2018-10-13] MEDS ORDERED: BISACODYL 10 MG SUPP.RECT RC ONE (11:30)
[2018-10-13 11:32] LABS: ALBUMIN 3.5 g/dL (3.5-5.0); BILIRUBIN,TOTAL 0.7 mg/dL (0.2-1.0); TOTAL PROTEIN, SERUM 6.8 g/dL (6.0-8.3)
[2018-10-13 14:51] LABS: APPEARANCE,URINE Clear (CLEAR); BILIRUBIN,URINE Negative (NEGATIVE); COLOR,URINE Yellow (YELLOW); GLUCOSE, URINE (UA) Negative (NEGATIVE); KETONES,URINE Negative (NEGATIVE); LEUKOCYTE ESTERASE ,URINE Negative (NEGATIVE); NITRATE,URINE Negative (NEGATIVE); OCCULT BLOOD,URINE Negative (NEGATIVE); PH,URINE 5.5 (5.0-8.0); PROTEIN,URINE POS 1+ (NEGATIVE); UROBILINOGEN,URINE 0.2 mg/dL (0.2-1.0)
[2018-10-13 14:58] LABS: AMPHET/METH SCREEN,URINE NEGATIVE (NEGATIVE); BARBITURATE SCREEN, URINE NEGATIVE (NEGATIVE); BENZODIAZEPINES SCREEN,URINE NEGATIVE (NEGATIVE); CANNABINOID SCREEN,URINE NEGATIVE (NEGATIVE); COCAINE SCREEN,URINE NEGATIVE (NEGATIVE); OPIATE SCREEN,URINE NEGATIVE (NEGATIVE); PHENCYCLIDINE SCREEN,URINE NEGATIVE (NEGATIVE)
[2018-10-13 15:23] LABS: BACTERIA,URINE None Seen /HPF (None Seen); MUCUS,URINE Moderate LPF (None Seen); RBC,URINE None Seen /HPF (0-1); SQUAMOUS EPITHELIAL CELL,UR 0-2 /HPF (0-2); WBC,URINE None Seen /HPF (0-1)
== END 2018-10-13 15:49 | disposition home or self-care (01) ==
LOC: EDH 10:35
DX: K59.00 Constipation, unspecified (principal); B02.9 Zoster without complications; G89.29 Other chronic pain; M54.5 Low back pain; I10 Essential (primary) hypertension; E03.9 Hypothyroidism, unspecified; F11.20 Opioid dependence, uncomplicated; Z85.46 Personal history of malignant neoplasm of prostate; Z90.49 Acquired absence of other specified parts of digestive tract
CPT/HCPCS: 36415; 74176; 80053; 80305; 81001; 83690; 84484; 85025; 93005

== ENCOUNTER 2018-10-17 00:37 | Observation (INO) | payer OTHER, MEDICARE ==
[~2018-10-17] VITALS: Ht 160 cm; Wt 52.9 kg
[2018-10-17 01:18] LABS: BASOPHILS % (AUTO) 0.5 % (0.0-5.0); EOSINOPHILS % (AUTO) 1.7 % (0.0-8.0); HEMATOCRIT 34.5 % (42-54); LYMPHOCYTES % (AUTO) 25.3 % (21.0-51.0); MEAN CORPUSCULAR HGB CONC 32.3 g/dL (32.0-36.0); MEAN CORPUSCULAR VOLUME 105.4 fL (79-99); MONOCYTES % (AUTO) 10.6 % (3.0-13.0); NEUTROPHILS % (AUTO) 61.9 % (40.0-77.0); NUCLEATED RED BLOOD CELLS 0.1 % (0.0-0.19); PLATELET COUNT (AUTO) 120 K/uL (130-400); RED BLOOD CELL COUNT(AUTO) 3.27 MIL/uL (4.50-6.20); RED CELL DISTRIBUTION WIDTH 15.3 % (11.0-15.5); WHITE BLOOD COUNT (AUTO) 4.1 K/uL (4.8-10.8)
[2018-10-17 01:33] LABS: CREATININE 1.3 mg/dL (0.5-1.5); POTASSIUM 5.5 mmol/L (3.5-5.1)
[2018-10-17 01:38] LABS: ALBUMIN 3.3 g/dL (3.5-5.0); BILIRUBIN,TOTAL 0.6 mg/dL (0.2-1.0); TOTAL PROTEIN, SERUM 5.8 g/dL (6.0-8.3)
[2018-10-17] MEDS ORDERED: SODIUM CHLORIDE 0.9% 1000ML 1,000 ML IV ONE (02:02)
[2018-10-17 02:16] LABS: APPEARANCE,URINE Clear (CLEAR); BILIRUBIN,URINE Negative (NEGATIVE); COLOR,URINE Yellow (YELLOW); GLUCOSE, URINE (UA) Negative (NEGATIVE); KETONES,URINE Negative (NEGATIVE); LEUKOCYTE ESTERASE ,URINE Negative (NEGATIVE); NITRATE,URINE Negative (NEGATIVE); OCCULT BLOOD,URINE Negative (NEGATIVE); PH,URINE 5.5 (5.0-8.0); PROTEIN,URINE POS 2+ (NEGATIVE); UROBILINOGEN,URINE 0.2 mg/dL (0.2-1.0)
[2018-10-17] MEDS ORDERED: ACETAMINOPHEN 325 MG TAB ONE (05:44)
[2018-10-17] MEDS ORDERED: ACETAMINOPHEN 325 MG TAB PO PRN (05:45)
[2018-10-17] MEDS: LACTATED RINGERS 1000ML 1,000 ML IV SCH ×2 (05:45→15:21)
[2018-10-17] MEDS ORDERED: LACTATED RINGERS 1000ML 1,000 ML IV ONE (05:45)
[2018-10-17] MEDS ORDERED: ONDANSETRON HCL MDV 20ML 2 MG/ML VIAL IVP PRN (05:45)
[2018-10-17] MEDS ORDERED: CLONIDINE HCL 0.1 MG TABLET PO PRN (05:45)
[2018-10-17] MEDS ORDERED: ENOXAPARIN SODIUM 40 MG/0.4 ML SYRINGE SQ ONE (08:26)
[2018-10-17] MEDS ORDERED: PANTOPRAZOLE SODIUM 40 MG TABLET.DR PO ONE (08:27)
[2018-10-17] MEDS ORDERED: ENOXAPARIN SODIUM 40 MG/0.4 ML SYRINGE SQ SCH (09:00)
[2018-10-17] MEDS: PANTOPRAZOLE SODIUM 40 MG TABLET.DR PO SCH (09:00)
[2018-10-17] MEDS ORDERED: PHARMACY COMMUNICATION MISC SCH (11:45)
[2018-10-17 12:19] VITALS: BP 143/81
[2018-10-17] MEDS: TRAMADOL HCL 50 MG TABLET PO PRN ×2 (13:47→20:21)
[2018-10-17] MEDS: GABAPENTIN 300 MG CAPSULE PO SCH (13:47)
[2018-10-17] MEDS: VALACYCLOVIR HCL 500 MG TABLET PO SCH ×2 (13:47→20:20)
[2018-10-17] MEDS ORDERED: POLYETHYLENE GLYCOL 3350 17 GM POWD.PACK PO PRN (14:15)
[2018-10-17] MEDS ORDERED: IBUPROFEN 800 MG TAB PO PRN (14:15)
[2018-10-17] MEDS ORDERED: ZOLP10TA2 PO (14:26)
[2018-10-17] MEDS ORDERED: FAMC500T18 PO (14:26)
[2018-10-17] MEDS ORDERED: IBUP-2071 PO (14:26)
[2018-10-17] MEDS ORDERED: POLY17PO4 PO (14:26)
[2018-10-17 16:00] VITALS: BP 138/82
[2018-10-17 19:00] VITALS: BP 168/63
[2018-10-17] MEDS: ATORVASTATIN CALCIUM 40 MG TABLET PO SCH (20:20)
[2018-10-17] MEDS: DOCUSATE SODIUM 100 MG CAP PO SCH (20:20)
[2018-10-17] MEDS: ZOLPIDEM TARTRATE 5 MG TAB PO PRN (20:29)
[2018-10-18] VITALS: BP 165/77
[2018-10-18] MEDS: TRAMADOL HCL 50 MG TABLET PO PRN ×3 (00:36→22:57)
[2018-10-18 04:00] VITALS: BP 179/78
[2018-10-18 04:38] LABS: ALBUMIN 2.8 g/dL (3.5-5.0); BILIRUBIN,TOTAL 0.8 mg/dL (0.2-1.0); CREATININE 0.9 mg/dL (0.5-1.5); POTASSIUM 4.2 mmol/L (3.5-5.1); TOTAL PROTEIN, SERUM 5.6 g/dL (6.0-8.3)
[2018-10-18] MEDS: VALACYCLOVIR HCL 500 MG TABLET PO SCH ×3 (05:24→20:31)
[2018-10-18] MEDS: LEVOTHYROXINE 100 MCG TABLET PO SCH ×2 (05:27→05:59)
[2018-10-18] MEDS: HOME MEDICATION 1 EACH PO SCH ×2 (05:27→06:34)
[2018-10-18] MEDS: LACTATED RINGERS 1000ML 1,000 ML IV SCH ×2 (05:59→23:32)
[2018-10-18] MEDS ORDERED: LEVOTHYROXINE 100 MCG TABLET PO SCH (07:30)
[2018-10-18] MEDS ORDERED: LINACLOTIDE 290 MCG PO SCH (07:30)
[2018-10-18 08:00] VITALS: BP 98/59
[2018-10-18] MEDS: GABAPENTIN 300 MG CAPSULE PO SCH (08:12)
[2018-10-18] MEDS: PANTOPRAZOLE SODIUM 40 MG TABLET.DR PO SCH (08:12)
[2018-10-18] MEDS: METOPROLOL TARTRATE 25 MG TAB PO SCH (08:18)
[2018-10-18] MEDS: ASPIRIN 81MG TAB.CHEW PO SCH (08:18)
[2018-10-18] MEDS: AMLODIPINE BESYLATE 5 MG TAB PO SCH (08:18)
[2018-10-18] MEDS: TAMSULOSIN HCL 0.4 MG CAP.ER.24H PO SCH (08:18)
[2018-10-18] MEDS: ENOXAPARIN SODIUM 30 MG/0.3 ML SQ SCH (08:19)
[2018-10-18 12:00] VITALS: BP 91/50
[2018-10-18 19:53] VITALS: BP 106/54
[2018-10-18] MEDS: DOCUSATE SODIUM 100 MG CAP PO SCH (20:31)
[2018-10-18] MEDS: ATORVASTATIN CALCIUM 40 MG TABLET PO SCH (20:31)
[2018-10-18] MEDS: ZOLPIDEM TARTRATE 5 MG TAB PO PRN (23:02)
[2018-10-18 23:32] VITALS: BP 124/61
[2018-10-19 03:37] VITALS: BP 108/60
[2018-10-19] MEDS: VALACYCLOVIR HCL 500 MG TABLET PO SCH ×3 (05:31→21:41)
[2018-10-19] MEDS: TRAMADOL HCL 50 MG TABLET PO PRN ×4 (05:36→21:40)
[2018-10-19] MEDS: LEVOTHYROXINE 100 MCG TABLET PO SCH (06:09)
[2018-10-19] MEDS: HOME MEDICATION 1 EACH PO SCH (07:41)
[2018-10-19 08:00] VITALS: BP 151/70
[2018-10-19] MEDS: ASPIRIN 81MG TAB.CHEW PO SCH (08:00)
[2018-10-19] MEDS: METOPROLOL TARTRATE 25 MG TAB PO SCH (08:00)
[2018-10-19] MEDS: TAMSULOSIN HCL 0.4 MG CAP.ER.24H PO SCH (08:00)
[2018-10-19] MEDS: GABAPENTIN 300 MG CAPSULE PO SCH (08:00)
[2018-10-19] MEDS: AMLODIPINE BESYLATE 5 MG TAB PO SCH (08:01)
[2018-10-19] MEDS: ENOXAPARIN SODIUM 30 MG/0.3 ML SQ SCH (08:01)
[2018-10-19] MEDS: PANTOPRAZOLE SODIUM 40 MG TABLET.DR PO SCH (08:01)
[2018-10-19] MEDS: LACTATED RINGERS 1000ML 1,000 ML IV SCH (11:05)
[2018-10-19 12:00] VITALS: BP 108/49
[2018-10-19 16:00] VITALS: BP 93/48
[2018-10-19 20:00] VITALS: BP 113/53
[2018-10-19] MEDS: ATORVASTATIN CALCIUM 40 MG TABLET PO SCH (21:40)
[2018-10-19] MEDS: DOCUSATE SODIUM 100 MG CAP PO SCH (21:41)
[2018-10-19 23:47] VITALS: BP 110/58
[2018-10-20 04:00] VITALS: BP 128/62
[2018-10-20 07:30] VITALS: BP 135/60
[2018-10-20] MEDS: HOME MEDICATION 1 EACH PO SCH (07:30)
[2018-10-20] MEDS: AMLODIPINE BESYLATE 5 MG TAB PO SCH (09:12)
[2018-10-20] MEDS: LEVOTHYROXINE 100 MCG TABLET PO SCH (09:12)
[2018-10-20] MEDS: GABAPENTIN 300 MG CAPSULE PO SCH (09:12)
[2018-10-20] MEDS: ASPIRIN 81MG TAB.CHEW PO SCH (09:12)
[2018-10-20] MEDS: METOPROLOL TARTRATE 25 MG TAB PO SCH (09:13)
[2018-10-20] MEDS: TAMSULOSIN HCL 0.4 MG CAP.ER.24H PO SCH (09:13)
[2018-10-20] MEDS: PANTOPRAZOLE SODIUM 40 MG TABLET.DR PO SCH (09:13)
[2018-10-20] MEDS: ENOXAPARIN SODIUM 30 MG/0.3 ML SQ SCH (09:14)
[2018-10-20 11:00] VITALS: BP 133/69
[2018-10-20] MEDS: VALACYCLOVIR HCL 500 MG TABLET PO SCH (14:35)
[2018-10-24] MEDS ORDERED: ALENDRONATE SODIUM 35 MG TAB PO SCH (06:30)
== END 2018-10-20 15:30 | disposition home or self-care (01) ==
LOC: EDH 00:37 → EDHIP 03:36 → 4AH 09:23 → 4CH 12:38
PROVIDERS: ADMIT Internal Medicine Critical Care Medicine; ATTEND Internal Medicine Critical Care Medicine
DX: G89.4 Chronic pain syndrome (principal); B02.9 Zoster without complications; E03.9 Hypothyroidism, unspecified; I10 Essential (primary) hypertension; E87.5 Hyperkalemia; E86.0 Dehydration; M19.90 Unspecified osteoarthritis, unspecified site; F11.20 Opioid dependence, uncomplicated; R62.7 Adult failure to thrive; Z91.81 History of falling
CPT/HCPCS: 36415 ×2; 71045; 74176; 80053 ×2; 81003; 83605; 83690; 84132; 84484; 85025; 87804 ×2; 93005; 96360; 96361 ×3; 96372 ×3; 97039; 97116 ×3; 97161; 99284; G0378 ×84; G8978; G8979; G8980; G8981; G8982; G8983; J1650 ×4; J7030; J7120 ×4

== ENCOUNTER 2018-11-14 06:49 | Emergency (ER) | payer OTHER, MEDICARE ==
[~2018-11-14 06:49] MED LIST changes: +ALEN70TA10 PO; -ALEN70TA47 PO; +FAMC500T18 PO; +IBUP-2071 PO; +POLY17PO4 PO; +ZOLP10TA2 PO
[2018-11-14 08:08] LABS: CREATININE 1.2 mg/dL (0.5-1.5); POTASSIUM 5.7 mmol/L (3.5-5.1)
[2018-11-14 08:11] LABS: ALBUMIN 3.6 g/dL (3.5-5.0); BILIRUBIN,TOTAL 0.5 mg/dL (0.2-1.0); TOTAL PROTEIN, SERUM 6.4 g/dL (6.0-8.3)
== END 2018-11-14 09:40 | disposition home or self-care (01) ==
LOC: EDH 06:49
DX: G89.4 Chronic pain syndrome (principal); F11.20 Opioid dependence, uncomplicated; I10 Essential (primary) hypertension; E03.9 Hypothyroidism, unspecified; Z85.46 Personal history of malignant neoplasm of prostate
CPT/HCPCS: 36415; 80053

== ENCOUNTER 2018-11-21 18:15 | Observation (INO) | payer OTHER, MEDICARE ==
[~2018-11-21] VITALS: Ht 162.6 cm; Wt 59.0 kg
[~2018-11-21 18:15] MED LIST changes: +AMIODARONE HCL 50 MG/ML 3 ML VIAL IV ONE; +CALCIUM CHLORIDE 100 MG/ML 10 ML SYG IVP ONE; +EPINEPHRINE 0.1 MG/ML 10 ML SYG IVP ONE; +NALOXONE HCL 0.4 MG/1 ML ML IVP ONE; +SODIUM BICARB 8.4% 50ML SYRINGE IVP ONE
[2018-11-21 18:36] LABS: BASOPHILS % (AUTO) 0.7 % (0.0-5.0); EOSINOPHILS % (AUTO) 1.2 % (0.0-8.0); HEMATOCRIT 32.5 % (42-54); LYMPHOCYTES % (AUTO) 28.1 % (21.0-51.0); MEAN CORPUSCULAR HEMOGLOBIN 33.5 pg (27.0-33.0); MEAN CORPUSCULAR HGB CONC 30.7 g/dL (32.0-36.0); MEAN CORPUSCULAR VOLUME 109.1 fL (79-99); MONOCYTES % (AUTO) 7.8 % (3.0-13.0); NEUTROPHILS % (AUTO) 62.2 % (40.0-77.0); NUCLEATED RED BLOOD CELLS 0.1 % (0.0-0.19); PLATELET COUNT (AUTO) 124 K/uL (130-400); RED BLOOD CELL COUNT(AUTO) 2.98 MIL/uL (4.50-6.20); RED CELL DISTRIBUTION WIDTH 16.4 % (11.0-15.5); WHITE BLOOD COUNT (AUTO) 4.5 K/uL (4.8-10.8)
[2018-11-21 18:51] LABS: POTASSIUM 5.3 mmol/L (3.5-5.1)
[2018-11-21 18:55] LABS: ALBUMIN 3.5 g/dL (3.5-5.0); BILIRUBIN,TOTAL 0.3 mg/dL (0.2-1.0); TOTAL PROTEIN, SERUM 6.2 g/dL (6.0-8.3)
[2018-11-21] MEDS ORDERED: SODIUM CHLORIDE 0.9% 500ML 500 ML IV ONE (19:46)
[2018-11-21] MEDS ORDERED: ONDANSETRON HCL 4 MG/2 ML VIAL ONE (19:46)
[2018-11-21] MEDS ORDERED: MORPHINE SULFATE 2 MG/ML 1ML SYG ONE (20:09)
[2018-11-21] MEDS ORDERED: SODIUM CHLORIDE 0.9% 1000ML 1,000 ML IV ONE ×2 (22:00→23:38)
[2018-11-21] MEDS ORDERED: FAMOTIDINE/PF 20 MG/2 ML VIAL IV ONE (22:00)
[2018-11-21 23:11] LABS: CREATININE 1.9 mg/dL (0.5-1.5); POTASSIUM 5.5 mmol/L (3.5-5.1)
[2018-11-21] MEDS ORDERED: ONDANSETRON HCL 4 MG/2 ML VIAL IVP PRN (23:45)
[2018-11-21] MEDS ORDERED: SODIUM CHLORIDE 0.9% 1000ML 1,000 ML IV SCH (23:45)
[2018-11-21] MEDS ORDERED: ACETAMINOPHEN 325 MG TAB PO PRN (23:45)
[2018-11-22] MEDS ORDERED: SODIUM POLYSTYRENE SULFONATE 15 GM/60 ML ML ONE (00:15)
[2018-11-22 03:50] VITALS: BP 104/48
[2018-11-22 05:35] LABS: HEMATOCRIT 32.7 % (42-54); MEAN CORPUSCULAR HEMOGLOBIN 34.7 pg (27.0-33.0); MEAN CORPUSCULAR VOLUME 111.9 fL (79-99); NUCLEATED RED BLOOD CELLS 0.2 % (0.0-0.19); PLATELET COUNT (AUTO) 132 K/uL (130-400); RED BLOOD CELL COUNT(AUTO) 2.92 MIL/uL (4.50-6.20); WHITE BLOOD COUNT (AUTO) 4.6 K/uL (4.8-10.8)
[2018-11-22 05:47] LABS: POTASSIUM 4.9 mmol/L (3.5-5.1)
[2018-11-22 08:00] VITALS: BP 103/41
--- NOTE | 2018-11-22 08:00 | NUR ---
AM ROUNDS. HEAD OF BED UP, AWAKE, NO C/0.
[2018-11-22] MEDS ORDERED: ENOXAPARIN SODIUM 30 MG/0.3 ML SQ SCH (09:00)
[2018-11-22] MEDS ORDERED: PANTOPRAZOLE SODIUM 40 MG TABLET.DR PO SCH (09:00)
--- NOTE | 2018-11-22 09:30 | NUR ---
WALKED INTO ROOM TO GIVE PT. HIS AM MEDS. WAS ON HIS RT. SIDE AND I THOUGHT HE WAS SLEEPING. CALLED HIM BY HIS NAME AND DID NOT RESPOND, REACHED OVER AND TOUCHED HIM AND ADDRESSED AND TOLD HIM I WAS THERE TO GIVE HIM HIS AM MEDICATION. STILL DID NOT RESPOND. SKIN WAS WARM, DRY, FACE LOOKED ASHY, PALE. DR. QUISPE OUTSIDE DOOR AND I CALLED HIM IN. NO PULSE, CHEST NOT RISING. CODE BLUE CALLED. ALL APPROPRIATE DISCIPLINES RESPONDED AND ACLS PROTOCOL CARRIED OUT TO NO AVAIL. CM CONTACTED ONLY AVAIL FAMILY AROUND, A NIECE NAMED BENY PITTSHolly.
--- NOTE | 2018-11-22 12:30 | NUR ---
post [facility] care has been done, [place] [facility] [place], they also have been called.
--- NOTE | 2018-11-22 12:43 | NUR ---
call placed again to daughter sergei whom lives in [place] and this time call answered, states she already knew about her father, other family member had called her.
--- NOTE | 2018-11-22 13:00 | NUR ---
AM ASSESSMENT NOT DONE DUE TO SUITATION. SEE NOTES.
== END 2018-11-22 09:33 | disposition expired ==
LOC: EDH 18:15 → EDHIP 23:39 → 3CH 11-22 03:31
PROVIDERS: ADMIT Internal Medicine; ATTEND Internal Medicine
DX: E87.5 Hyperkalemia (principal); R11.2 Nausea with vomiting, unspecified; K59.00 Constipation, unspecified; N17.9 Acute kidney failure, unspecified; I10 Essential (primary) hypertension; G89.29 Other chronic pain; M54.9 Dorsalgia, unspecified; E03.9 Hypothyroidism, unspecified; F11.20 Opioid dependence, uncomplicated; Z85.46 Personal history of malignant neoplasm of prostate; Z87.891 Personal history of nicotine dependence
CPT/HCPCS: 31500; 36415 ×2; 71045; 74176; 80048; 80053; 82948; 83605 ×2; 83690; 84484; 85025; 85027; 92950; 93005; 96372; 99285; G0378 ×10; J0171; J0282; J1650; J2310; J2405; J3490 ×3; J7030 ×2; J7040; 99291; C9113